=== PATIENT | female | born 1995 | race American Indian/Alaskan Native ===

== ENCOUNTER 2021-09-18 05:10 | Inpatient (IN) | payer MEDICAID, OTHER ==
--- NOTE | 2021-09-17 21:45 | History and Physical Report ---
History of Present Illness Date of examination: 09/13/21 Date of admission: 09/18/2021 Chief complaint: repeat section History of present illness: Patient is a at 39w0d presenting for repeat section. Voices no complaints. +FM. Denies ctx, LOF, and vaginal bleeding. Past History Past Medical History: no pertinent history Past Surgical History: section Family/Genetic History: none Social history: no significant social history - Obstetrical History Expected Date of Delivery: 09/25/21 Actual Gestation: 39 Week(s) 0 Day(s) : 2 Para: 1 Hx # Term Pregnancies: 1 Number of Pregnancies: 0 Spontaneous Abortions: 0 Induced : 0 Number of Living Children: 1 Medications and Allergies Allergies Allergy/AdvReac Type Severity Reaction Status Date / Time No Known Allergies Allergy Verified 11/07/13 23:00 Home Medications Medication Instructions Recorded Confirmed Last Taken Type Ciprofloxacin HCl [Ciprofloxacin 500 mg PO Q12H #14 tab 06/06/15 Unknown Rx TAB] Ibuprofen [Motrin 600 MG tab] 600 mg PO Q8H PRN #30 tablet 06/06/15 Unknown Rx Fluconazole (Nf) [Diflucan TAB] 150 mg PO ONCE #1 tablet 06/08/15 Unknown Rx Active Meds: Active Medications Citric Acid/Sodium Citrate (Bicitra Oral Liqd 30ml) 30 ml PO ONCE ONE Stop: 09/17/21 21:39 Famotidine (Famotidine 20 Mg/2 Ml Inj) 20 mg IV ONCE ONE Stop: 09/17/21 21:39 Lactated Ringer's (Lactated Ringers) 1,000 mls @ 2,250 mls/hr IV PREOP LORRAINE Stop: 09/18/21 22:12 Oxytocin/Sodium Chloride (Pitocin/Ns 30 Unit/500ml) 30 units in 500 mls @ 0 mls/hr IV TITR LORRAINE; Protocol Metoclopramide HCl (Metoclopramide 10 Mg/2 Ml Inj) 10 mg IV ONCE ONE Stop: 09/17/21 21:39 Review of Systems All systems: negative - Physical Exam Abdomen: Positive: soft, other (pfannenstiel scar noted) Genitourinary (Female): Positive: normal external genitalia Extremities: - Obstetrical FHR: category 2 Uterine Contraction Monitor Mode: External Uterine Contraction Pattern: Irregular Results Result Diagrams: 09/18/21 05:54 All other labs normal. Assessment and Plan Patient for RCS Procedure risks reviewed including pain, bleeding, infection, damage to surrounding tissues and structures, need for further procedures, injury to baby. Procedure and blood consents signed Ancef 2g preoperatively H/H and Type and screen ordered To OR as scheduled - Patient Problems (1) History of delivery Current Visit: Yes Status: Acute (2) 39 weeks gestation of Current Visit: Yes Status: Acute
[2021-09-18] MEDS: LACTATED RINGERS 1,000 ML IV SCH ×2 (05:55→07:21)
[2021-09-18] MEDS ORDERED: LACTATED RINGERS 1,000 ML ONE (05:55)
[2021-09-18] MEDS ORDERED: OXYTOCIN DRIP 30 UNITS/500 ML BAG IV SCH ×2 (06:00→11:13)
--- NOTE | 2021-09-18 06:04 | Anesthesia Day of Surgery ---
Anesthesia Day of Surgery - Day of Surgery Patient Examined: Yes Patient H&P Reviewed: Yes Patient is NPO: Yes
--- NOTE | 2021-09-18 06:05 | Anesthesia Consultation ---
Anesthesia Consult and Med Hx Date of service: 09/18/21 - Airway Anesthetic Teeth Evaluation: Good ROM Head & Neck: Adequate Mental/Hyoid Distance: Adequate Mallampati Class: Class II Intubation Access Assessment: Probably Good - Pulmonary Exam CTA: Yes - Cardiac Exam Cardiac Exam: RRR - Pre-Operative Health Status ASA Pre-Surgery Classification: ASA2 Proposed Anesthetic Plan: Spinal - Pulmonary Hx Smoking: No (stop few years ago) Hx Asthma: No COPD: No Hx Pneumonia: No - Cardiovascular System Hx Hypertension: No - Central Nervous System Hx Seizures: No Hx Back Pain: Yes Hx Psychiatric Problems: No - Gastrointestinal Hx Gastroesophageal Reflux Disease: No - Endocrine Hx Renal Disease: No Hx End Stage Renal Disease: No Hx Hypothyroidism: No Hx Hyperthyroidism: No - Hematic Hx Anemia: No Hx Sickle Cell Disease: No - Other Systems Hx Alcohol Use: No Hx Substance Use: No Hx Obesity: No
[2021-09-18] MEDS ORDERED: FAMOTIDINE 20 MG/2 ML INJ IV ONE (06:15)
[2021-09-18] MEDS ORDERED: BICITRA ORAL LIQD 30ML PO ONE (06:15)
[2021-09-18 06:37] LABS: Hematocrit 33.1 % (30.3-42.9); Hemoglobin 11.7 gm/dl (10.1-14.3); Mean Corpuscular HGB Conc 35 % (30-34); Mean Corpuscular Volume 80 fl (79-97); Platelet Count 201 K/mm3 (140-440); Red Blood Count 4.16 M/mm3 (3.65-5.03); Red Cell Distribution Width 15.7 % (13.2-15.2)
[2021-09-18] MEDS ORDERED: METOCLOPRAMIDE 10 MG/2 ML INJ IV ONE (07:00)
[2021-09-18] MEDS ORDERED: ONDANSETRON 4 MG/2 ML INJ ONE (07:29)
[2021-09-18] MEDS ORDERED: BUPIVACAINE/PF (0.5%) 5 MG/1 ML 30 ML VIAL INFILTRATI ONE ×2 (07:29)
[2021-09-18 07:41] LABS: Eosinophils % (Manual) 0 % (0.0-4.3); Total Cells Counted 100
[2021-09-18 07:45] LABS: Anisocytosis 2+; Poikilocytosis 1+; Schistocytes Rare; Spherocytes Rare; Target Cells 1+
[2021-09-18 07:46] LABS: Large Platelets Rare; Platelet Estimate Consistent w Auto
[2021-09-18] MEDS ORDERED: ceFAZolin/STERILE WATER 2 GM/20 ML SYRINGE IV ONE (07:55)
[2021-09-18] MEDS ORDERED: PHENYLEPHRINE 10 MG/1 ML INJ SDV ONE (07:57)
[2021-09-18] MEDS ORDERED: SODIUM CHLORIDE 0.9% IRR 1,500 ML BOTTLE IR ONE (08:00)
[2021-09-18] MEDS ORDERED: WATER FOR IRRIG STERILE 1,500 ML BOTTLE IR ONE (08:00)
[2021-09-18] MEDS ORDERED: METHYLERGONOVINE MALEATE 0.2 MG/ML VIAL IM ONE (08:12)
[2021-09-18] MEDS ORDERED: KETOROLAC 30 MG/1 ML INJ ONE (08:15)
[2021-09-18] MEDS ORDERED: dexAMETHasone 20 MG/5 ML VIAL ONE (08:15)
[2021-09-18] MEDS ORDERED: SODIUM CHLORIDE 0.9% 100 ML ONE (08:32)
--- NOTE | 2021-09-18 09:03 | Operative Report ---
Operative Report Operative Report: Date of Procedure: September 18, 2021 Preoperative diagnosis: IUP @39 weeks, history of Postoperative diagnosis: same, s/p repeat section Procedure: Low transverse section Surgeon: Kayleen Espinoza MD Arc Trimmer: ELOISE Anesthesia: Spinal Complications: none QBL: 883 ml IV Fluids: 1800 ml UOP: 400 ml, clear urine at the end of procedure Indications: Repeat section Findings: 2980 g male in left occiput posterior position cephalic presentation with Apgars 8 & 9 Amniotic fluid clear Fallopian tubes normal in appearance bilaterally Ovaries normal in appearance bilaterally Procedure: The patient was taken to the operating room where epidural anesthesia was found to be adequate. 2 g Ancef was given prior to the procedure. She was then prepared and draped in the usual sterile fashion in the dorsal supine position with a leftward tilt. A Pfannenstiel skin incision was made with the scalpel and carried through to the underlying layer of fascia with the bovie. The fascia was incised in the midline and the incision extended laterally. The superior aspect of the fascial incision was then grasped with the Mallorie's clamps, elevated, and the underlying rectus muscles dissected off bluntly and with sharp dissection using bovie. Attention was then turned to the inferior aspect of this incision which, in a similar fashion, was grasped, tented up with the Mallorie clamps, and the rectus was dissected off bluntly and with sharp dissection. The rectus muscles were then in the midline, and the peritoneum identified and entered bluntly. The peritoneal incision was then extended superiorly and inferiorly with good visualization of the bladder. The bladder blade was then inserted and the vesicouterine peritoneum identified, grasped with the pick ups, and entered sharply with the Metzenbaum scissors. This incision was then extended laterally and the bladder flap created digitally. The bladder blade was then reinserted and the lower uterine segment incised in a transverse fashion with the scalpel. The uterine incision was then extended laterally digitally. The bladder blade was then removed and the was delivered via LOP position.The nose and mouth were suctioned with the bulb suction and the cord clamped and cut. The infant was handed off to the waiting pediatricians.The placenta was then removed; the uterus exteriorized and cleared of all clots and debris. The uterine incision was repaired with 0 vicryl in a running locked fashion to obtain excellent hemostasis. Uterine atony noted and Methergine given. An imbrication layer was done. Uterine tone improved. Uterus returned to the abdomen. The rectus muscle was reapproximated with 2-0 vicryl. The fascia was reapproximated with 1-0 vicryl in a running fashion. The skin was closed with 4-0 monocryl subcuticular stitch and the incision sealed with Dermabond.The patient tolerated the procedure well. Sponge, lap, needle counts correct X 2. The patient was taken to the recovery room in a stable condition.
--- NOTE | 2021-09-18 09:11 | Progress Note ---
Regional Anesthesia Block - Regional Anesthesia Block Start Time: 07:33 Stop Time: 07:39 Performed By:: SHEILA JAMES Procedure: Patient IDed, H&P reviewed, all questions and concerns were answered, and consent was signed. Timeout was performed at bedside. Patient in sitting position. Sterile prep and drape was performed. [3] ml of 1% lidocaine skin wheal at L[3]- L [4]. Needle introducer advanced. 24 gauge spinal needle advanced. Clear, free flowing CSF. negative blood, negative paresthesia. Spinal dose given. All needles removed. Patient tolerated procedure.
--- NOTE | 2021-09-18 09:12 | Progress Note ---
Regional Anesthesia Block - Regional Anesthesia Block Start Time: :01 Stop Time: :04 Performed By:: SHEILA JAMES Procedure: Patient consented for TAP block for post surgical pain management. Patient identified, monitors placed, and time out performed. TAP identified bilaterally via ultrasound. Skin prepped bilaterally with [chlorhexidine] and [22g stimuplex] needle advanced to the TAP. [Marcaine 0.22% 35ml] injected under ultrasound guidance on the [left] side. [Marcaine 0.22% 35ml] injected under ultrasound guidance on the [right] side. Negative aspiration every 5mL, No change in heart rate or rhythm. Patient tolerated the procedure well. No apparent complications seen.
[2021-09-18] MEDS ORDERED: NALOXONE 0.4 MG/1 ML INJ IV PRN (11:13)
[2021-09-18] MEDS ORDERED: MORPHINE 4 MG/1 ML INJ IV PRN (11:13)
[2021-09-18] MEDS ORDERED: ONDANSETRON 4 MG/2 ML INJ IV PRN (11:13)
[2021-09-18] MEDS ORDERED: LANOLIN/ZINC/DIMETHICONE (LANSINOH) 7 GM TP PRN (12:00)
[2021-09-18] MEDS ORDERED: WITCH HAZEL/ GLYCERIN PAD TP PRN (12:00)
[2021-09-18] MEDS ORDERED: LACTATED RINGERS 1000 ML IV SOLN IV SCH (13:45)
[2021-09-18] MEDS: KETOROLAC 30 MG/1 ML INJ IV SCH ×2 (14:29→20:25)
[2021-09-18] MEDS: FERROUS SULFATE 325 MG TAB PO SCH (20:25)
[2021-09-18 20:31] LABS: Hematocrit 27.7 % (30.3-42.9); Hemoglobin 9.8 gm/dl (10.1-14.3)
[2021-09-18] MEDS: oxyCODONE /ACETAMINOPHEN 5-325MG TAB PO PRN (21:25)
[2021-09-19] MEDS: KETOROLAC 30 MG/1 ML INJ IV SCH (03:15)
--- NOTE | 2021-09-19 09:24 | Progress Note ---
Assessment and Plan - Patient Problems (1) delivery delivered Current Visit: No Status: Chronic Plan to address problem: -routine post op/pp care -anticipate d/c in the am Subjective - Subjective Date of service: 09/19/21 Principal diagnosis: POD#1 s/p RLTCS Interval history: Pt doing well. Tolerating regular diet and ambulating in room when provider arrived for examination. She has not c/o today. Patient reports: appetite normal, voiding normally, pain well controlled, flatus, ambulating normally, no dizzy ambulation, no nauseated [place]: doing well Objective - Vital Signs Latest vital signs: Vital Signs Temp Pulse Resp BP BP Pulse Ox Pulse Ox 09/19/21 04:00 98.6 F 77 18 105/79 09/19/21 00:21 98.0 F 94 H 18 118/59 97 09/18/21 20:25 98 09/18/21 20:08 98.0 F 101 H 18 103/63 99 09/18/21 16:25 97.9 F 55 L 20 124/73 99 09/18/21 12:45 97.1 F L 69 20 113/69 100 09/18/21 10:25 98.5 F 66 18 123/53 100 98 09/18/21 10:00 60 16 117/72 100 09/18/21 09:45 97.9 F 59 L 14 98/70 99 09/18/21 09:30 62 15 116/68 98 Intake and Output 09/18/21 09/19/21 09/19/21 22:59 06:59 14:59 Intake Total 760 200 Output Total 1250 600 Balance -490 -400 Intake: Oral 760 Intake, Free Water 200 Output: Urine 1250 600 Indwelling Catheter 1250 Void 600 Other: Total, Intake Amount 200 Total, Output Amount 600 600 # Voids Void 1 - Exam Cardiovascular: Present: Normal S1, Normal S2 Lungs: Present: Clear to auscultation, Normal air movement Abdomen: Present: normal appearance, soft, normal bowel sounds. Absent: distention, guarding Uterus: Present: normal, firm, fundal height below umbilicus. Absent: bogginess, tenderness Extremities: Present: normal. Absent: tenderness, edema Deep Tendon Reflex Grade: Normal +2 Incision: Present: normal, dry, intact (open to air with surgical glue in place) - Labs Labs: Abnormal lab results 09/18/21 Range/Units 20:03 Hgb 9.8 L (10.1-14.3) gm/dl Hct 27.7 L (30.3-42.9) %
--- NOTE | 2021-09-19 09:27 | Post Anesthesia Evaluation ---
- Post Anesthesia Evaluation Patient Participated: Yes Airway Patent: Yes Stable Respiratory Function: Yes Nausea/Vomiting: No Temp > 96.8F: Yes Pain Manageable: Yes Adequeate Hydration: Yes Anesthesia Complications: No Block Receding Appropriately: Yes Patient on Ventilator: No
[2021-09-19] MEDS: IBUPROFEN 800 MG TAB PO SCH ×3 (11:09→22:28)
[2021-09-19] MEDS: PRENATAL VIT27-FE FUMARATE-FOLIC ACID VIT TAB PO SCH (11:09)
[2021-09-19] MEDS: oxyCODONE /ACETAMINOPHEN 5-325MG TAB PO PRN ×2 (11:10→18:06)
[2021-09-19] MEDS: FERROUS SULFATE 325 MG TAB PO SCH (11:10)
[2021-09-20] MEDS: oxyCODONE /ACETAMINOPHEN 5-325MG TAB PO PRN ×3 (00:06→15:34)
[2021-09-20] MEDS: IBUPROFEN 800 MG TAB PO SCH ×3 (02:45→15:34)
--- NOTE | 2021-09-20 06:51 | Discharge Summary ---
Providers - Providers Date of Admission: 09/18/21 05:10 Date of discharge: 09/20/21 (Pt has strong desire to go home. ) Attending physician: WAYNE FISH Primary care physician: WAYNE FISH Hospitalization Reason for admission: section Delivery: Episiotomy: none Incision: normal, dry, intact Other procedures: none complications: none Discharge diagnosis: IUP at term delivered [place] baby: male Hospital course: S: Pt doing well. Ambulating, voiding, and passing flatus okay. O: VSS. Adequate I&O's. H/H 9.8/27.7, asymptomatic anemia of delivery. Fundus firm, minimal bleeding noted. A: 25 y.o. s/p rpt . In good condition . P: Discharge home with instructions. Pt to scheduled son's circumcision and incision check in the office in 1 wk. Condition at discharge: Good Disposition: 01 HOME / SELF CARE / HOMELESS Plan - Discharge Medications Prescriptions: Docusate Sodium [Colace] 100 mg PO BID #60 capsule Lidocain2.5%/Prilocai2.5% [Emla] 1 applic TP ONCE #1 tube Ibuprofen [Motrin 800 MG tab] 800 mg PO Q8HR #30 tablet oxyCODONE /ACETAMINOPHEN [Percocet 5/325] 1 tab PO Q6HR PRN #20 tablet PRN Reason: Pain Vit-Fe Fumar-FA [ Vitamin] 1 tab PO QDAY #30 tablet - Provider Discharge Summary Activity: routine, no sex for 6 weeks, no heavy lifting 4 weeks, no strenuous exercise Diet: routine Instructions: routine Additional instructions: [] Smoking cessation referral if applicable(refer to patient education folder for contact #) [] Refer to [facility] Booklet Call your doctor immediately for: * Fever > 100.5 * Heavy vaginal bleeding ( >1 pad per hour) * Severe persistent headache * Shortness of breath * Reddened, hot, painful area to leg or breast * Drainage or odor from incision. * Keep incision clean and dry at all times and follow doctor's instructions regarding bathing/showering - Follow up plan Follow up: WAYNE FISH MD [Primary Care Provider] - 7 Days (- Congratulations on the of your baby boy! - Thank you for allowing us to take care of you! - Please keep your scheduled incision check in the office. - Please schedule your son's circumcision in the office in 1 week. - You have been given a prescription for EMLA cream for your son's circumcision. Please do not use this cream at home but bring it with you to your son's circumcision appointment. - Should you have any questions or concerns after discharge, please do not hesitate to call the office at [phone]. )
[2021-09-20] MEDS: FERROUS SULFATE 325 MG TAB PO SCH (10:04)
[2021-09-20] MEDS: PRENATAL VIT27-FE FUMARATE-FOLIC ACID VIT TAB PO SCH (10:05)
[2021-09-20 17:26] VITALS: BP 116/74
== END 2021-09-20 18:12 | disposition home or self-care (01) | DRG 766 ==
LOC: APU 05:10 → OB 10:20
PROVIDERS: ADMIT Obstetrics & Gynecology; ATTEND Obstetrics & Gynecology
PROC: 10D00Z1 Extraction of Products of Conception, Low, Open Approach (ICD-10-PCS; principal; 2021-09-18)
DX: O34.211 Maternal care for low transverse scar from previous cesarean delivery (principal); Z37.0 Single live birth; Z3A.39 39 weeks gestation of pregnancy; Z20.822 Contact with and (suspected) exposure to COVID-19
CPT/HCPCS: 36415; 85007; 85014; 85018; 85025; 86592; 86850; 86900; 86901; G0378; J3490; J7121; J0690; J1100; J1885; J2370; J2405; J2765; J7120; U0003